=== PATIENT | male | born 1990 | race Caucasian/White ===

== ENCOUNTER 2018-01-09 08:06 | Emergency (ER) | payer OTHER ==
[2018-01-09] MEDS ORDERED: IBUPROFEN 400 MG TABLET PO STA (08:50)
[2018-01-09] MEDS ORDERED: ALBUTEROL NEB 2.5 MG/3 ML INH STA (08:50)
--- NOTE | 2018-01-09 08:52 | ED Physician Documentation ---
History of Present Illness - Stated complaint Stated Complaint: FEVER/BODYACHES/THROAT PX - Chief complaint Chief Complaint: Fever - Additonal information Additional information: hx from pt 28 AD [place] male to ED with fever to 101 + sore throat body aches cp and cough no recent travel he thinks sx are due to inhaling polyuerethane paint that he was sanding yesterday - but he was wearing a respirator sx started about 4 hr after th sanding job Review of Systems Constitutional: reports: Fever, Myalgias Throat: reports: Sore throat Cardiac: reports: Chest pain / pressure Respiratory: reports: Cough GI: denies: Abdominal Pain, Nausea, Vomiting Endocrine: denies: Easy bruising / bleeding Immunocompromised: denies: Immunocompromised PD PAST MEDICAL HISTORY - Past Medical History Past Medical History: No - Past Surgical History Past Surgical History: No - Present Medications Home Medications: Ambulatory Orders Medication Instructions Recorded Confirmed Albuterol Sulfate [Proair Hfa 2 puffs INH Q4H PRN #1 inhaler 01/09/18 Inhaler] Bupropion HCl [Bupropion HCl ER] 350 mg 01/09/18 - Allergies Allergies/Adverse Reactions: Allergies Allergy/AdvReac Type Severity Reaction Status Date / Time No Known Drug Allergies Allergy Verified 01/09/18 08:15 - Social History Does the pt smoke?: No Smoking Status: Never smoker PD ED PE NORMAL - Vitals Vital signs reviewed: Yes - General General: Alert and oriented X 3 - HEENT HEENT: PERRL, Moist mucous membranes, Pharynx benign - Neck Neck: Supple, no meningeal sign - Cardiac Cardiac: RRR - Respiratory Respiratory: No respiratory distress, Clear bilaterally - Abdomen Abdomen: Soft, Non tender - Extremities Extremities: No tenderness to palpate, Normal ROM s pain, No edema, No calf tenderness / cord - Neuro Neuro: Alert and oriented X 3 Results - Vitals Vitals: Vital Signs - 24 hr 01/09/18 01/09/18 08:11 09:29 Temperature 36.6 C Heart Rate 76 81 Respiratory 18 16 Rate Blood Pressure 123/70 O2 Saturation 100 Oxygen O2 Source Room air - Labs Labs: Laboratory Tests 01/09/18 08:40 Group A Strep Rapid Negative - Rads (name of study) CXR Radiology: See rad report ([facility]) PD MEDICAL DECISION MAKING - Sepsis Event Vital Signs: Vital Signs - 24 hr 01/09/18 01/09/18 08:11 09:29 Temperature 36.6 C Heart Rate 76 81 Respiratory 18 16 Rate Blood Pressure 123/70 O2 Saturation 100 Oxygen O2 Source Room air Departure - Departure Disposition: 01 Home, Self Care Clinical Impression: Reactive airway disease Qualifiers: Asthma severity: unspecified severity Asthma persistence: unspecified Asthma complication type: uncomplicated Qualified Code(s): J45.909 - Unspecified asthma , uncomplicated Condition: Good Instructions: ED Reactive Airway Disease Follow-Up: ARMIDA ELIZABETH MD [Primary Care Provider] - Prescriptions: Albuterol Sulfate [Proair Hfa Inhaler] 2 puffs INH Q4H PRN #1 inhaler PRN Reason: Shortness Of Air/Wheezing Comments: The xray was fine and the strep test was negative. This is likely airway inflammation for the chemical you in haled The breathing treatment seems to help so I have prescribed you an inhaler Please follow up with [facility] if not better in 2 days Return if worse No working out until better Forms: Activity restrictions
--- NOTE | 2018-01-09 09:18 | XRAY Report ---
Procedure Date: 01/09/2018 Accession Number: [id number] / [id number] Procedure: XR - Chest 2 View X-Ray CPT Code: 40626 FULL RESULT: EXAM: CHEST RADIOGRAPHY EXAM DATE: 01/09/2018 09:04 AM. CLINICAL HISTORY: Cough fever. COMPARISON: None. TECHNIQUE: 2 views. FINDINGS: Lungs/Pleura: No focal opacities evident. No pleural effusion. No pneumothorax. Normal volumes. Mediastinum: Heart and mediastinal contours are unremarkable. Other: None. IMPRESSION: Normal 2-view chest radiography. [facility]
[2018-01-09 10:20] VITALS: BP 110/66
== END 2018-01-09 10:20 | disposition home or self-care (01) ==
LOC: ED 08:06
DX: J45.909 Unspecified asthma, uncomplicated (principal)
CPT/HCPCS: 71046; 87070; 87430; 94640; 94664; 99283; A9270

== ENCOUNTER 2019-05-01 11:41 | Emergency (ER) | payer OTHER ==
[2019-05-01 12:07] VITALS: BP 115/76
[2019-05-01] MEDS ORDERED: cefTRIAXone 250 MG VIAL IM STA (14:34)
[2019-05-01] MEDS ORDERED: AZITHROMYCIN 250 MG TABLET PO STA (14:34)
[2019-05-01] MEDS ORDERED: LIDOCAINE 1% 2 ML VIAL MC ONE (14:34)
--- NOTE | 2019-05-01 14:38 | ED Physician Documentation ---
History of Present Illness - Stated complaint Stated Complaint: MALE - Chief complaint Chief Complaint: General - History obtained from History obtained from: Patient - History of Present Illness Timing: How many days ago (4) Pain level max: 2 Pain level now: 2 - Additonal information Additional information: Patient presents to the emergency department complaining of urethral discharge, clear for the past 4 days after having intercourse with a new partner. Has a history of gonorrhea and chlamydia in the past. No fevers. No vomiting. Nothing makes it better or worse Review of Systems Constitutional: denies: Fever GI: denies: Nausea, Vomiting Skin: denies: Rash PD PAST MEDICAL HISTORY - Past Medical History Past Medical History: No - Past Surgical History Past Surgical History: No - Present Medications Home Medications: Ambulatory Orders Medication Instructions Recorded Confirmed Albuterol Sulfate [Proair Hfa 2 puffs INH Q4H PRN #1 inhaler 01/09/18 Inhaler] buPROPion HCl [Bupropion HCl ER] 350 mg 01/09/18 - Allergies Allergies/Adverse Reactions: Allergies Allergy/AdvReac Type Severity Reaction Status Date / Time No Known Drug Allergies Allergy Verified 05/01/19 12:07 - Social History Does the pt smoke?: No Smoking Status: Never smoker PD ED PE NORMAL - Vitals Vital signs reviewed: Yes - General General: Alert and oriented X 3, No acute distress, Well developed/nourished - HEENT HEENT: Moist mucous membranes - Neck Neck: Supple, no meningeal sign - Cardiac Cardiac: RRR - Respiratory Respiratory: Clear bilaterally - Derm Derm: Warm and dry - Neuro Neuro: Alert and oriented X 3 - Psych Psych: Normal mood, Normal affect Results - Vitals Vitals: Vital Signs - 24 hr 05/01/19 12:03 Temperature 98.7 C H Heart Rate 57 L Respiratory 14 Rate Blood Pressure 115/76 O2 Saturation 100 Oxygen O2 Source Room air PD MEDICAL DECISION MAKING - ED course Complexity details: considered differential, d/w patient ED course: Patient treated for gonorrhea and chlamydia. Testing was sent for confirmation. Given Rocephin and azithromycin. Patient counseled regarding signs and symptoms for which I believe and urgent re-evaluation would be necessary. Patient with good understanding of and agreement to plan and is comfortable going home at this time This document was made in part using voice recognition software. While efforts are made to proofread this document, sound alike and grammatical errors may occur. Departure - Departure Disposition: 01 Home, Self Care Clinical Impression: STD (sexually transmitted disease) Condition: Good Instructions: ED STD Male Treated Follow-Up: ARMIDA ELIZABETH MD [Primary Care Provider] - As Needed Comments: You should use condoms for any sexual activity. Return if you worsen. You were treated for both gonorrhea and chlamydia today.
[2019-05-01 15:01] LABS: BILIRUBIN,URINE NEGATIVE (NEGATIVE); GLUCOSE, URINE (UA) NEGATIVE (NEGATIVE); KETONES,URINE (UA) NEGATIVE (NEGATIVE); LEUKOCYTE ESTERASE, URINE NEGATIVE (NEGATIVE); NITRITE,URINE NEGATIVE (NEGATIVE); OCCULT BLOOD,URINE NEGATIVE (NEGATIVE); PROTEIN,URINE NEGATIVE (NEGATIVE); UROBILINOGEN,URINE 0.2 (NORMAL) E.U./dL (NORMAL)
[2019-05-01 15:02] LABS: CLARITY,URINE CLEAR (CLEAR)
[2019-05-01 20:59] LABS: TRICHOMONAS VAGINALIS DNA NEGATIVE (NEGATIVE)
== END 2019-05-01 14:59 | disposition home or self-care (01) ==
LOC: ED 11:41
DX: A56.2 Chlamydial infection of genitourinary tract, unspecified (principal); A54.00 Gonococcal infection of lower genitourinary tract, unspecified
CPT/HCPCS: 81003; 87491; 87591; 87661; 96372; 99282; 99283; A9270; 81001; 87086

== ENCOUNTER 2019-05-23 10:05 | Emergency (ER) | payer OTHER ==
[2019-05-23 10:14] VITALS: BP 142/79
--- NOTE | 2019-05-23 10:34 | ED Physician Documentation ---
PD HPI LOWER EXT INJURY - Stated complaint Stated Complaint: R KNEE PX - Chief complaint Chief Complaint: Ext Problem - History obtained from History obtained from: Patient - History of Present Illness PD HPI LOW EXT INJURY LOCATION: Right, Knee Type of injury: Twist (he was kneeling playing with his small son and felt a pop and pain in medial right knee when started to get up to standing position. Hurt a lot. Pain with ROM and walking, and improved after minutes. Then bent knee again and this time felt that it locked in mostly bent position. After few minutes, he was able to then straighten it, and did so with slight pop. He then was able to walk okay. He knelt down again shortly later,a nd had the knee lock bent again, hurting a lot to try to straighten it, and then 5-6 minutes later, he was then able to get it straight. Pain with walking since then.). No: Fall Where injury occurred: Home Timing - onset: Yesterday Timing - details: Abrupt onset, Still present, Waxing and waning (hurting and locking if bends knee to squatting/kneeling position.) Associated symptoms: No: Weakness, Numbness, Swelling Similar symptoms before: Has not had sx before Review of Systems Constitutional: denies: Fever, Chills, Myalgias Skin: denies: Rash, Lesions Musculoskeletal: reports: Extremity pain. denies: Extremity swelling Neurologic: denies: Focal weakness, Numbness PD PAST MEDICAL HISTORY - Past Medical History Past Medical History: No Musculoskeletal: None - Past Surgical History Past Surgical History: No - Present Medications Home Medications: Ambulatory Orders Medication Instructions Recorded Confirmed Ibuprofen [Motrin] 600 mg PO TID PRN #25 tab 05/23/19 - Allergies Allergies/Adverse Reactions: Allergies Allergy/AdvReac Type Severity Reaction Status Date / Time No Known Drug Allergies Allergy Verified 05/23/19 10:11 - Social History Does the pt smoke?: No Smoking Status: Never smoker Does the pt drink ETOH?: No Does the pt have substance abuse?: No PD ED PE NORMAL - Vitals Vital signs reviewed: Yes - General General: Alert and oriented X 3, No acute distress, Well developed/nourished - Derm Derm: Normal color, Warm and dry - Extremities Extremities: Other (right knee with tenderness medially that shifts with ROM of the knee. No effusion noted. Pain with valgus stress and also with rotational movement of lower leg. Extends to full, without locking nor crepitance.) - Neuro Neuro: Alert and oriented X 3, No motor deficit, No sensory deficit Results - Vitals Vitals: Vital Signs - 24 hr 05/23/19 10:11 Temperature 36.7 C Heart Rate 61 Respiratory 17 Rate Blood Pressure 142/79 H O2 Saturation 100 Oxygen O2 Source Room air PD MEDICAL DECISION MAKING - ED course Complexity details: reviewed results (no bony abnormal), considered differential (can be MCL strain, but the locking and popping are most suggestive of MCL small tear. ), d/w patient Departure - Departure Disposition: Home, Self Care Clinical Impression: Strain of right knee Qualifiers: Encounter type: initial encounter Qualified Code(s): S86.911A - Strain of unspecified muscle(s) and tendon(s) at lower leg level, right leg, initial encounter Acute meniscal injury of knee Qualifiers: Encounter type: initial encounter Laterality: right Qualified Code(s): S83.8X1A - Sprain of other specified parts of right knee, initial encounter Condition: Stable Record reviewed to determine appropriate education?: Yes Instructions: ED Meniscal Injury Knee Poss Follow-Up: ARMIDA ELIZABETH MD [Primary Care Provider] - Prescriptions: Ibuprofen [Motrin] 600 mg PO TID PRN #25 tab PRN Reason: Pain Comments: Your x-ray is normal so no obvious bony abnormality. This sounds like a small tear at the corner of the meniscus (cartilage in the knee). Use the knee brace to limit range of motion to straight to 90 degrees. Do not do any deep knee bending or squatting for least a week. Use some anti-inflammatory such as ib uprofen 3 times a day for 7 to 10 days. Follow-up with your primary care in about 5 to 7 days, call for an appointment. Most commonly the small tear in the meniscus will heal down and settle down and not be your ongoing problem. If it is still a recurring issue, you would follow-up with your primary care and they may need to refer you to orthopedics or get other imaging such as MRI. Forms: Activity restrictions Discharge Date/Time: 05/23/19 12:22
[2019-05-23] MEDS ORDERED: IBUPROFEN 600 MG TABLET PO STA (11:18)
--- NOTE | 2019-05-23 11:27 | XRAY Report ---
Reason: felt knee pop lock last night Procedure Date: 05/23/2019 Accession Number: [id number] / [id number] Procedure: XR - Knee 4 View RT CPT Code: Final Report FULL RESULT: EXAM: RIGHT KNEE RADIOGRAPHY FOR YEARS EXAM DATE: 05/23/2019. CLINICAL HISTORY: [place] the knee pop and lock last night. Flexion injury. COMPARISON: None. TECHNIQUE: AP, both oblique and crosstable lateral views. FINDINGS: Bones: Normal. No fractures or bone lesions. Joints: Normal. No effusion. No subluxations. Soft Tissues: Normal. No soft tissue swelling. IMPRESSION: Normal right knee radiography. [facility]
== END 2019-05-23 12:22 | disposition home or self-care (01) ==
LOC: ED 10:05
DX: S86.911A Strain of unspecified muscle(s) and tendon(s) at lower leg level, right leg, initial encounter (principal); S83.8X1A Sprain of other specified parts of right knee, initial encounter; X58.XXXA Exposure to other specified factors, initial encounter; Y93.89 Activity, other specified; Y92.009 Unspecified place in unspecified non-institutional (private) residence as the place of occurrence of the external cause
CPT/HCPCS: 73564; 99283; A9270

== ENCOUNTER 2019-06-02 01:13 | Outpatient (CLI) | payer OTHER | END 2019-06-02 01:14 | disposition critical access hospital (66) | LOC: EMS 01:13 | PROVIDERS: ATTEND Surgery | DX: R29.898 Other symptoms and signs involving the musculoskeletal system (principal); M25.561 Pain in right knee | CPT/HCPCS: A0425; A0429 ==

== ENCOUNTER 2019-06-02 01:29 | Emergency (ER) | payer OTHER ==
--- NOTE | 2019-06-02 01:51 | ED Physician Documentation ---
PD HPI LOWER EXT INJURY - Stated complaint Stated Complaint: RT KNEE INJURY - Chief complaint Chief Complaint: Ext Problem - History obtained from History obtained from: Patient - History of Present Illness PD HPI LOW EXT INJURY LOCATION: Right, Knee Type of injury: No: Fall, Twist Where injury occurred: Home Timing - onset: How many hours ago (2), Today Timing - duration: Other (He had initial injury of the right knee about 2 and half weeks ago with pain in hurting with extension with clicking and popping while just in a kneeling position. No abrupt injury per se. It was felt to be likely meniscal and he was given a hinged knee brace and told not to do any deep squats or bends. He had been doing pretty well with it with occasional popping and clicking and pain of the knee. He went to get into bed this evening and bent his knee up as he got into bed and then the abruptly felt stuck in the flexed position and had significant pain with attempting to straighten it.) Timing - details: Abrupt onset, Still present Worsened by: Moving Associated symptoms: No: Weakness, Numbness, Swelling Similar symptoms before: Diagnosis (likely meniscal injury) Recently seen: Clinic (Last week and had referral placed for an MRI to better evaluate.), Emergency Dept (2 and half weeks ago) Review of Systems Constitutional: denies: Fever, Chills Skin: denies: Rash, Lesions, Abrasion (s) Musculoskeletal: reports: Joint pain Neurologic: denies: Focal weakness, Numbness PD PAST MEDICAL HISTORY - Past Medical History Past Medical History: No Musculoskeletal: None - Past Surgical History Past Surgical History: No - Present Medications Home Medications: Ambulatory Orders Medication Instructions Recorded Confirmed Ibuprofen [Motrin] 600 mg PO TID PRN #25 tab 05/23/19 - Allergies Allergies/Adverse Reactions: Allergies Allergy/AdvReac Type Severity Reaction Status Date / Time No Known Drug Allergies Allergy Verified 05/23/19 10:11 - Social History Does the pt smoke?: No Smoking Status: Never smoker Does the pt drink ETOH?: No Does the pt have substance abuse?: No PD ED PE NORMAL - Vitals Vital signs reviewed: Yes - General General: Alert and oriented X 3, Well developed/nourished, Other (He appears in pain and is holding his knee in a fully flexed position and is hands are wrapped around his leg to hold it splinted.) - Derm Derm: Normal color, Warm and dry - Extremities Extremities: Other (There is guarding for attempted extension of the right knee and it causes significant pain. I tried it and valgus stress with extension in that way but was still hurting quite a bit and guarded. No effusion.) - Neuro Neuro: Alert and oriented X 3, No motor deficit, No sensory deficit, Normal speech Results - Vitals Vitals: Vital Signs - 24 hr 06/02/19 06/02/19 01:30 03:50 Temperature 36.4 C L Heart Rate 92 65 Respiratory 18 18 Rate Blood Pressure 140/83 H 119/73 O2 Saturation 100 96 Oxygen O2 Source Room air PD MEDICAL DECISION MAKING - ED course Complexity details: considered differential (Likely a flap of meniscus is up and locking the joint. He is given some IV pain medication and I also injected the joint with 2% lidocaine using 4 mL from the medial side. This allowed decrease in his pain of his knee considerably. I extended the knee while doing valgus stress and was able to come out fully extended and felt better. There is no effusion noted.), d/w patient Departure - Departure Disposition: 01 Home, Self Care Clinical Impression: Acute meniscal injury of knee Qualifiers: Encounter type: subsequent encounter Laterality: right Qualified Code(s): S83.8X1D - Sprain of other specified parts of right knee, subsequent encounter Condition: Stable Record reviewed to determine appropriate education?: Yes Instructions: ED Meniscal Injury Knee Poss Follow-Up: LUCIANA Kapoor [Provider Group] Comments: Use the crutches for partial weightbearing as needed for the acute discomfort. You likely have some inflammation of the cartilage from the locking episode this evening. Use your knee brace still and avoid bending your knee beyond 90 degrees to minimize the movement and irritation of the meniscus. Follow-up with your primary care in the next few days, call for an appointment. I presume they will have you follow-up with orthopedics. Use some anti-inflammatories such as ibuprofen 2-3 times a day. Add pain medicine if needed.
[2019-06-02] MEDS ORDERED: KETOROLAC 30 MG/ML VIAL IVP STA (02:09)
[2019-06-02] MEDS ORDERED: HYDROmorphone 2 MG/ML VIAL IVP STA (02:09)
[2019-06-02] MEDS ORDERED: LIDOCAINE 2% 10 ML MDV SUBQ STA (02:39)
[2019-06-02] MEDS ORDERED: HYDROcod/ACET 5/325 Prepack 4 PO STA (03:29)
[2019-06-02 03:52] VITALS: BP 119/73
== END 2019-06-02 04:27 | disposition home or self-care (01) ==
LOC: EDUNIT# → ED 01:29
DX: S83.8X1A Sprain of other specified parts of right knee, initial encounter (principal); X58.XXXA Exposure to other specified factors, initial encounter; Y93.89 Activity, other specified; Y92.003 Bedroom of unspecified non-institutional (private) residence as the place of occurrence of the external cause
CPT/HCPCS: 96374; 96375; 99283; J1170

== ENCOUNTER 2019-06-08 18:25 | Outpatient (CLI) | payer OTHER | END 2019-06-08 18:26 | disposition home or self-care (01) | LOC: DI 18:25 | PROVIDERS: ATTEND Student in an Organized Health Care Education/Training Program | DX: Z53.9 Procedure and treatment not carried out, unspecified reason (principal) ==

== ENCOUNTER 2019-06-10 08:48 | Outpatient (CLI) | payer OTHER ==
--- NOTE | 2019-06-10 14:58 | MRI Report ---
Reason: RT KNEE PAIN Procedure Date: 06/10/2019 Accession Number: [id number] / [id number] Procedure: MRI - Knee RT W/O CPT Code: Final Report FULL RESULT: EXAM: RIGHT KNEE MRI WITHOUT CONTRAST EXAM DATE: 06/10/2019 09:12 AM. CLINICAL HISTORY: Right knee pain. Generalized pain, medial greater than lateral. COMPARISON: Radiographs 05/23/2019. TECHNIQUE: Multiplanar, multisequence T1-weighted and fluid-sensitive sequences of the knee without contrast. Other: None. FINDINGS: Bones: Bone contusion versus subtle impaction fracture far anterior margin medial femoral condyle at the junction with the trochlea. Mild reactive edema medial margin medial compartment. No subluxation. Articular Cartilage: Shallow partial thickness loss central aspect medial and lateral compartments. Deep partial thickness delaminating tear at the mid to inferior aspect medial patellar facet. Medial Meniscus: Horizontal tear contacts the inferior articular surface posterior horn. Lateral Meniscus: The lateral meniscus is intact. Cruciate Ligaments: Small lobulated ganglion along the anterior margins intact anterior and posterior cruciate ligaments. Collateral Ligaments: Mild thickening and edema proximal aspect medial collateral ligament with subtle distortion of the anterior third of the fibers. Lateral collateral ligament intact. Tendons: The quadriceps, patellar, semimembranosus, and popliteus tendons are unremarkable. Musculature: No edema or fatty atrophy. Other: Small joint effusion. Small popliteal cyst. No loose bodies. The medial and lateral retinacula are intact. Subcutaneous soft tissues and fat pads unremarkable.. IMPRESSION: 1. Bone contusion versus subtle impaction fracture medial femoral condyle. 2. Horizontal tear posterior horn medial meniscus. 3. Grade 2 sprain with partial-thickness tear medial collateral ligament. 4. Deep partial thickness delaminating cartilage tear medial patellar facet. 5. Small joint effusion. 6. Small popliteal cyst. [facility]
== END 2019-06-10 08:49 | disposition home or self-care (01) ==
LOC: DI 08:48
PROVIDERS: ATTEND Student in an Organized Health Care Education/Training Program
DX: M89.8X6 Other specified disorders of bone, lower leg (principal); S83.241A Other tear of medial meniscus, current injury, right knee, initial encounter; S83.411A Sprain of medial collateral ligament of right knee, initial encounter; S83.8X1A Sprain of other specified parts of right knee, initial encounter; M25.461 Effusion, right knee; M71.21 Synovial cyst of popliteal space [Baker], right knee

== ENCOUNTER 2019-07-12 07:41 | Day surgery (SDC) | payer OTHER ==
[2019-07-12] MEDS ORDERED: CEFAZOLIN SODIUM IN 0.9 % NACL 2 GM/100 ML BAG IV ONE (07:46)
[2019-07-12] MEDS ORDERED: EPINEPHrine 1 MG/ML AMP ONE (07:48)
[2019-07-12] MEDS ORDERED: BUPIVACAINE 0.25% PF 30 ML VIAL ONE (07:49)
[2019-07-12] MEDS ORDERED: LACTATED RINGERS 1,000 ML IV ONE (07:56)
--- NOTE | 2019-07-12 08:56 | ANESTHESIA ---
Pre-Anesthesia VS, & Labs - Diagnosis right knee meniscal tear - Procedure right knee arthroscopy, meniscal repair Vital Signs: Temp Pulse Resp BP Pulse Ox 36.9 C 76 16 113/63 100 07/12/19 07:56 07/12/19 07:56 07/12/19 07:56 07/12/19 07:56 07/12/19 07:56 Height 5 ft 11.65 in Weight (kg) 82.1 kg Body Mass Index 25.8 - NPO >8 hours Home Medications and Allergies Home Medications: Ambulatory Orders Sertraline HCl [Zoloft] 100 mg PO BID 07/10/19 Trazodone HCl 50 mg PO DAILY 07/10/19 Sertraline HCl [Zoloft] 100 mg PO BID 07/10/19 Trazodone HCl 50 mg PO DAILY 07/10/19 Allergies/Adverse Reactions: Allergies Allergy/AdvReac Type Severity Reaction Status Date / Time No Known Drug Allergies Allergy Verified 07/12/19 08:04 Anes History & Medical History - Anesthetic History Anesthesia Complications: reports: No previous complications - Medical History Cardiovascular: reports: None Pulmonary: reports: None Gastrointestinal: reports: None Urinary: reports: None Musculoskeletal: reports: Other Endocrine/Autoimmune: reports: None Skin: reports: None Smoking Status: Never smoker Exam General: Alert Dental: WNL Mouth Opening: Greater than 4 Fingerbreadths Neck Mobility: Normal Mallampati classification: II Thyromental Distance: greater than 6 cm Respiratory: Lungs clear Cardiovascular: Regular rate, Normal S1, Normal S2 Plan Anesthesia Type: General Consent for Procedure(s) Verified and Reviewed: Yes Code Status: Attempt Resuscitation ASA classification: 1-Healthy patient Is this case an emergency?: No
[2019-07-12] MEDS ORDERED: CELECOXIB 100 MG CAPSULE PO ONE (09:12)
[2019-07-12] MEDS ORDERED: GABAPENTIN 400 MG CAPSULE ONE (09:12)
[2019-07-12] MEDS ORDERED: ACETAMINOPHEN 1,000 MG/100 ML 100 ML IV ONE (09:13)
[2019-07-12] MEDS ORDERED: SCOPOLAMINE PATCH TOP ONE (09:17)
[2019-07-12] MEDS ORDERED: BUPIVACAINE 0.25% PF 30 ML VIAL SUBQ ONE ×2 (10:05)
[2019-07-12] MEDS ORDERED: ONDANSETRON 4 MG/2 ML VIAL IVP PRN (11:02)
[2019-07-12] MEDS ORDERED: oxyCODONE 5 MG TABLET PO PRN (11:02)
[2019-07-12] MEDS: HYDROmorphone 1 MG/ML CARPUJECT ONE ×2 (11:08→11:15)
--- NOTE | 2019-07-12 11:10 | OPERATIVE REPORT ---
Operative Report - Other Other Information/Narrative: Date of Surgery: 12 July 2019 Pre-Op Diagnosis: Right knee medial meniscus tear Procedure: Right knee medial meniscus repair Postop Diagnosis: Right knee medial meniscus tear Primary Surgeon: Jordan Yao Secondary Surgeon: None Complications: None Tourniquet Time: 53 minutes EBL: 5 cc Implants: Arthrex fiber stitch x3 Indication For Surgery: 29-year-old male sustained a medial meniscus tear 6 weeks ago while playing with his children. He had persistent mechanical symptoms and intermittent pain. MRI showed a vertical meniscus tear of the posterior horn and body. He was indicated for surgery to repair the meniscus, relieve mechanical symptoms, and prevent early arthritis. The risks, benefits, and alternatives were discussed. Risks include pain, bleeding, infection, damage to nearby structures and cartilage, lack of symptom relief, need for further surgery, DVT, PE, stroke, and . Written consent was obtained. Examination Under Anesthesia: ROM equal to the contralateral side. Stable dial at 30 & 90 degrees. Stable to varus and valgus stressing at 0 & 30 degrees. Normal Larry. Normal Pivot shift. Normal mechanical sensation Arthroscopic Findings: Loose bodies -none Synovium -exuberant fat pad and ligamentum mucosum that was debrided Patella cartilage -there was a focal partial-thickness lesion on the medial border the patella near the inferior pole, it was left in place. There is otherwise grade 1 changes of the patella Trochlear cartilage -grade 1 changes Medial femoral condyle cartilage -normal Medial tibial plateau cartilage -normal Medial meniscus -vertical tear of the posterior horn that extended into the body. It measured 13 mm off of the free edge. And was in the red-white zone. It was abraded with the meniscal rasp extensively and repaired with 3 all inside anchors by [employer]. It was very stable afterwards Anterior cruciate ligament -normal Posterior cruciate ligament -normal Lateral femoral condyle cartilage -normal Lateral tibial plateau cartilage -normal Lateral meniscus -normal Procedure in Detail: The patient was met in the pre-operative hold area on the day of the procedure. The operative extremity was signed and questions were answered. The patient was brought to the operating room and a general anesthetic was administered. Supine position was used and bony prominences were padded. An examination under anesthesia was performed. Standard prepping and draping was performed. A time out confirmed patient identification, laterality, procedure, allergies, antibiotics, and images. An Esmarch was used to exsanguinate the limb and the tourniquet was elevated to 250 mmHg. A standard diagnostic arthroscopy of the knee was performed through anterolateral and anteromedial portal sites. The anteromedial portal was created under direct visualization after localizing with a spinal needle. The findings can be found above. I then proceeded to use the meniscal rasp to abrade the tear until it began to bleed. I abraded it from the top as well as the bottom and ensured to remove all unstable scar tissue. I then used a sled and brought in the implant. I placed one near the root on the superior margin and tightened it per their technique, this reduced the meniscus very nicely and compressed at. The suture was then cut. I then repeated this again with the implant coming from the medial portal site further over in the posterior horn. I then placed a third implant from the lateral portal site in the body at the end of the tear. With the repair complete it was probed and found to be very stable. Final images were taken and all arthroscopic fluid and instruments were removed from the knee. The incisions were closed with buried monocryl sutures. Steri strips were applied. 20 cc of 0.25% Marcaine without epinephrine was injected near the portal sites. A sterile dressing and compression stocking was placed. A brace was placed in full extension. The patient was awakened and transferred to recovery in stable condition.
[2019-07-12] MEDS ORDERED: HYDROmorphone 0.5 MG/0.5 ML SYRINGE ONE (11:27)
[2019-07-12] MEDS ORDERED: oxyCODONE 5 MG TABLET ONE (11:51)
[2019-07-12 12:07] VITALS: BP 119/74
== END 2019-07-12 07:42 | disposition home or self-care (01) ==
LOC: SDS 07:41
PROVIDERS: ATTEND Orthopaedic Surgery
PROC: 0SQC4ZZ Repair Right Knee Joint, Percutaneous Endoscopic Approach (ICD-10-PCS; principal; 2019-07-12 09:00)
DX: S83.241A Other tear of medial meniscus, current injury, right knee, initial encounter (principal); F17.290 Nicotine dependence, other tobacco product, uncomplicated

== ENCOUNTER 2021-07-22 09:08 | Outpatient (CLI) | payer OTHER ==
--- NOTE | 2021-07-22 09:55 | SLEEP CARE CONSULTATION ---
Information from patient questionnaire entered by Amparo Crawford MA. I have reviewed and concur with the information entered by Amparo Crawford MA. This document represents the service I personally performed and the decisions made by , Cornelia Kim ARNP. History of Present Illness Service Date and Time: 07/22/2021 0908 Reason for Visit: New patient (ONSET 06/2018 NO PRIORS,) Chief Complaint: reports: Insomnia, Unrefreshed sleep, Snoring, Excessive daytime sleepiness Date of Onset: 2-3 YEARS Usual bedtime: 10 PM Time it takes to fall asleep: 1 PLUS HOUR Snores at night: Yes Observed to quit breathing while asleep: No Sleeps alone due to snoring: No Number of times waking at night: 1-2 TIMES Reasons for waking at night: reports: Other Toss, Turn, or Twitch while sleeping: Yes Recalls having dreams: Yes Usually gets out of bed at: 9120-1453 Feels refreshed in the morning: No Morning headache: No Sleepy or fatigued during the day: Yes Ever fallen asleep while driving: No Takes day naps: No Dreams during day naps: No Prior sleep studies: No Additional HPI information: I had the pleasure of seeing SURI SIMMS today regarding the possibility of him having a sleep disorder. His current complaints are insomnia, excessive daytime sleepiness, fatigue, snoring and unrefreshed sleep. The patient tells me that he normally goes to bed around 10 pm, and it takes him approximately 1 hour to fall asleep, sometimes longer. He states if he wakes up he usually will go back to sleep but about 2-3 time a month he will not be able to return to sleep. He has been told that he snores loudly and irregularly at night. He has not been observed to stop breathing in his sleep. His bed partner can still sleep in the same bed. He can recall waking up on the average of 1-2 times during the night. Most of the time he wakes up because of unknown reasons. He will wake up sweating or with a very dry mouth. He has not awakened for his own snoring, choking, and having to gasp for air. There is a lot of tossing and turning in his sleep. Generally he can recall having dreams sometimes but this is rare for him. He usually wakes up at 6-7 am on weekdays and 9 am on weekends and does not feel refreshed. He usually does not have a morning headache. During the day he complains of feeling sleepy and fatigued. He has never fallen asleep while driving nor has any accident due to sleepiness. He sometimes naps (about 1 times a month), these are usually unintentional for about 3-4 hours on average during the day. If he naps, upon falling asleep during the day he denies having vivid dreams. There is somniloquy (sleep talking) but no somnambulism (sleep walking). He has never experienced sleep paralysis, but has felt some muscle weakness when startled or emotional and has had symptoms of restless leg syndrome. He reports having impaired concentration during the day. - Parasomnia Symptoms Ever been unable to move upon waking from sleep: No Walks in sleep: No Talks in sleep: Yes Ever acted out dreams in sleep: Yes Ever felt weak in the knees when startled or emotional: Yes Bothered by creepy, crawly, restless sensations in legs: Yes Problems with memory or concentration: Yes Subjective Initial [place] Sleepiness Scale score: 10 (2021) Past Medical History Past Medical History: reports: Anxiety, Depression, Attention deficit Social History The patient's occupation is a [employer]. Patient is and lives in [place]. Have you smoked in the past 12 months: No Cigarettes per day (20/pack): 20 Years of smokin Quit date: 2012 Smoking Pack Years: 5.0 Alcohol use: No Caffeine use: Yes Caffeine amount and frequency: 2 X DAILY Family History Family history of sleep disordered breathing: Yes Family Hx Sleep Apnea: Mother: Snoring Allergies and Home Medications Drug allergies reviewed: Yes (NKDA) Home medication list reviewed: Yes Allergy and home medication list: Allergies No Known Drug Allergies Allergy (Verified 07/12/19 08:04) Medications: Adderall XR 30 mg Hydroxyzine 25 mg, prn Review of Systems Weight gain over past 5 years: 20 Weight loss over past 5 years: 0 Psychiatric: reports: Attention Deficit Hyperactivity, anxiety, depression Ear/Nose/Throat: reports: dry mouth/throat, injury to nose (nose broken (cartilage), has deviated septum), wisdom teeth removed. denies: tonsillectomy Endocrine: reports: sluggishness Musculoskeletal: reports: joint pain, back pain Immunologic: denies: allergies to food or environment Physical Exam Vital signs obtained and entered by: NATIVIDAD GONZALEZ Blood Pressure: 131/90 (RIGHT, PULSE 59,RESP 18,) Cuff size: wrist Heart Rate: 64 O2 Saturation: 99 (WITH CLOTH MASK) Height: 5 ft 11.65 in Weight: 195 lb (WITH CLOTHES) Body Mass Index: 26.6 BMI Classification: Overweight Neck circumference: 15.45 (inches) Mouth and throat: narrow oropharynx Soft palate: long Hard palate: normal Uvula: normal Uvula visualization: 50% Mallampati Class II Tongue: enlarged in size with teeth cooper on lateral edges Tonsils: small Neck: normal w/o lymphadenopathy or thyromegaly Heart: regular rate and rhythm Lungs: clear bilaterally Impression and Plan 1. Suspected Obstructive Sleep Apnea-Hypopnea Syndrome, as suggested by a history of irregular snoring, frequent awakening during the night, unrefreshed sleep, cognitive impairment, and excessive daytime sleepiness. Narrow oropharynx and obesity are common predisposing factors for obstructive sleep apnea-hypopnea syndrome. I recommend proceeding to polysomnography to confirm the diagnosis and to assess severity. If the patient has significant sleep disordered breathing, a manual CPAP titration study will also be performed to find the optimal treatment pressure. I informed the patient of what the sleep studies involve and after eladio e discussion, obtained agreement to proceed. The pathophysiology of obstructive sleep apnea-hypopnea syndrome was discussed with the patient and health risks of cardiovascular and cerebrovascular disease if not treated. Risks of drowsy driving discussed in detail and patient advised to avoid long distance driving and to gut puller at the first sign of drowsiness. Patient agreed to plan. * Schedule polysomnography +- manual CPAP titration study and return in 1-2 weeks after the study to discuss result and initiate therapy. * Avoid long distance driving or driving when feeling sleepy. * Avoid alcohol, sedative and muscle relaxant around bedtime. * Attempt to lose weight. * Review instructions provided by trained office staff on how to prepare for the sleep study. * Return for follow-up after sleep study completed. Counseling Topics: Weight loss health impact Visit Type: In Office Time Spent with Patient (minutes): 31 Provider Statement: I spent 100% of the Face to Face Visit with the patient with greater than 50% spent counseling the patient and coordination of care.
[2021-07-22 09:56] VITALS: BP 131/90
== END 2021-07-22 09:09 | disposition home or self-care (01) ==
LOC: SC 09:08
PROVIDERS: ATTEND Nurse Practitioner Family
DX: R06.83 Snoring (principal); G47.8 Other sleep disorders; G47.10 Hypersomnia, unspecified; R41.89 Other symptoms and signs involving cognitive functions and awareness
CPT/HCPCS: 99203; 99212

== ENCOUNTER 2021-08-02 08:49 | Outpatient (CLI) | payer OTHER ==
--- NOTE | 2021-08-02 13:56 | MRI Report ---
PROCEDURE: Hand LT W/O INDICATIONS: SPRAIN OF METACARPOPPHALANGEAL JOINT TECHNIQUE: Noncontrast oblique coronal T1 spin echo and T2 fast spin echo with fat saturation, axial and sagitta l T2 fast spin echo with fat saturation, through the thumb. COMPARISON: None. FINDINGS: Image quality: Excellent. Bones: The bones are normally aligned, without marrow contusions or fractures. Nonspecific subcortic al cyst formation involving radial and volar aspect of first metacarpal head is seen. No suspicious i ntraosseous lesion. First carpometacarpal joint: On sagittal images, the dorsal radial ligament and posterior oblique li gament appear intact. The intermetacarpal ligament between the 1st and 2nd metacarpal bases also vicky ears intact. On the volar aspect, the deep and superficial layers of the anterior oblique ligament a ppear intact. First metacarpophalangeal joint: Small amount of fluid within first MCP joint is seen. No gross intr a-articular loose bodies. The proper and accessory components of the radial collateral ligament appea rs thickened suggestive of sprain/low-grade intrasubstance partial thickness tear. Overlying fibers o f the abductor pollicis brevis tendon are grossly intact.. The proper and accessory components of th e ulnar collateral ligaments also appears mildly thickened. The overlying fibers of the adductor poll icis muscle is intact. The aponeurosis of the adductor pollicis muscle also appears normal. The vol ar plate appears intact on sagittal images, situated between the radial and ulnar sesamoids. Thenar muscles: The superficial abductor pollicis longus muscle appears normal, with tendon insertin g on the radial base of the first proximal phalanx. The opponens pollicis muscle also appears normal , inserting on the first metacarpal shaft. The flexor pollicis brevis muscle appears normal, with te ndon inserting on the radial sesamoid and first proximal phalanx. The oblique and transverse heads o f the adductor pollicis muscle appear normal, inserting on the ulnar sesamoid and proximal phalanx as part of the adductor aponeurosis. Flexor pollicis longus tendon: Tendon fibers appear intact, coursing between the thenar eminence mus cles and the adductor pollicis muscle, and inserting on the volar base of the distal phalanx. The fi rst annular cecille at the level of the first MCP joint appears intact, intimate with the sesamoids. The second annular cecille at the level of interphalangeal joint also appears intact. The oblique laurita ular cecille between the 1st and 2nd annular pulleys appears intact, with ulnar proximal attachment in timate with the adductor aponeurosis. The variable annular cecille also appears intact between the fi rst annular and oblique annular pulleys. Extensor tendons: The extensor pollicis brevis tendon appears intact, coursing radial to the extenso r pollicis longus tendon and inserting on the dorsal base of the proximal phalanx, blending with the dorsal plate of the first MCP joint. The extensor pollicis longus tendon appears intact as it insert s on the dorsal base of the distal phalanx. The sagittal band at the level of the first MCP joint ap pears intact. The abductor pollicis longus tendon slips appear intact at the radial aspect of the pr oximal phalanx, proximal to the abductor pollicis brevis tendon insertion. Miscellaneous: No ganglion cysts. IMPRESSION: 1. Finding is suggestive of sprain/low-grade partial thickness tear involving the radial collateral l igaments of first MCP joint. There is also low-grade sprain involving ulnar collateral ligaments of f irst MCP joint. No full-thickness ligament rupture. 2. Extensor and flexor tendon of left thumb are grossly intact. 3. No marrow edema. No fracture or dislocation. No specific subcortical cyst formation and radial and volar aspect of first metacarpal head. Reviewed by: Dylan Sanchez MD on 08/02/2021 1:55 PM PST Approved by: Dylan Sanchez MD on 08/02/2021 1:55 PM PST Station ID: [id number]
== END 2021-08-02 08:50 | disposition home or self-care (01) ==
LOC: DI 08:49
PROVIDERS: ATTEND Family Medicine
DX: S63.642D Sprain of metacarpophalangeal joint of left thumb, subsequent encounter (principal)

== ENCOUNTER 2021-08-03 09:16 | Outpatient (CLI) | payer OTHER | END 2021-08-03 09:17 | disposition home or self-care (01) | LOC: SC 09:16 | PROVIDERS: ATTEND Nurse Practitioner Family | DX: R09.02 Hypoxemia (principal); G47.10 Hypersomnia, unspecified; R53.83 Other fatigue; G47.8 Other sleep disorders; R06.83 Snoring; F32.A Depression, unspecified | CPT/HCPCS: 95806 ==

== ENCOUNTER 2021-08-19 09:32 | Outpatient (CLI) | payer OTHER ==
--- NOTE | 2021-08-19 09:59 | SLEEP CARE CONSULTATION ---
Information from patient questionnaire entered by Amparo Crawford MA. I have reviewed and concur with the information entered by Amparo Crawford MA. This document represents the service I personally performed and the decisions made by Julio mccabe Caren J, ARNP. History of Present Illness Service Date and Time: 08/19/2021 0932 Initial [place] Sleepiness Scale score: 10 (2021) Current [place] Sleepiness Scale score: 10 (08/2021) Additional HPI information: SURI SIMMS returns for follow up and results of the recently performed home sleep study. The patient was informed of the following findings: No significant sleep disordered breathing with an average AHI of 3.2 and sarah oxygen saturation of 77%. I explained the pathophysiology behind obstructive sleep apnea. Patient does not have sleep apnea and was advised how weight gain could increase the risk of developing sleep apnea in the future. Patient has light snoring. His testing time was sub-optimal in length. Patient counseled not drink alcohol less than 4 hours before bedtime as it can increase snoring and apnea. Patient was cautioned about risks of drowsy driving until sleepiness symptoms resolve. Sleep Study - Results Type of Sleep Study: Home sleep study (F/U HOME STUDY) Prior sleep studies: No Polysomnography/Home Sleep Study results: Physician Impression: The quality of the study is good. The length of the study is [id number] (< 240 minutes). Please also see the tabulated and graphic data. 1. No significant sleep disordered breathing, with an AHI of 3.2/hr and sarah SaO2 of 77%. During the study, the patient had 3 apneas (3 obstructive, 0 central, 0 mixed) and 6 hypopneas. The longest episode lasted 53.0 seconds. The few respiratory events occurred independently of body position (supine AHI was 4.3 and non-supine, 3.14). 2. Hypoxemia (ICD-10 R09.02), minimal, with the lowest oxygen saturation of 77 % and 1.6 minutes with SaO2 under 90%. Baseline oxygen saturation was normal (Average oxygen saturation was 96%). Allergies and Home Medications Home medication list reviewed: Yes (no changes) Allergy and home medication list: Allergies No Known Drug Allergies Allergy (Verified 07/12/19 08:04) Review of Systems Review of systems same as previous: Yes (no changes) Physical Exam Vital signs obtained and entered by: NATIVIDAD GONZALEZ Blood Pressure: 121/74 (PULSE 61, RIGHT, RESP 18) Cuff size: regular Heart Rate: 62 O2 Saturation: 100 (PAPER) Height: 5 ft 11.65 in Weight: 200 lb Body Mass Index: 27.3 BMI Classification: Overweight Impression and Plan 1. Suspected Obstructive Sleep Apnea-Hypopnea Syndrome, as suggested by a history of loud and irregular snoring, morning headache, frequent awakening during the night, unrefreshed sleep, cognitive impairment, and excessive daytime sleepiness. Patient completed a home study with less than optimal amount of recording time. He states he thought he slept 8 hours but it only recorded a bout 3 hours of sleep. I think we need to repeat the study just to get a more accurate measurement. I recommend proceeding to polysomnography to confirm the diagnosis and to assess severity. If the patient has significant sleep disordered breathing, a manual CPAP titration study will also be performed to find the optimal treatment pressure. I informed the patient of what the sleep studies involve and after some discussion, obtained agreement to proceed. The pathophysiology of obstructive sleep apnea-hypopnea syndrome was discussed with the patient and health risks of cardiovascular and cerebrovascular disease if not treated. Risks of drowsy driving discussed in detail and patient advised to avoid long distance driving and to shoe puller at the first sign of drowsiness. Patient agreed to plan. * Schedule polysomnography +- manual CPAP titration study and return in 1-2 weeks after the study to discuss results. * Avoid long distance driving or driving when feeling sleepy. * Avoid alcohol, sedative and muscle relaxant around bedtime. * Attempt to lose weight. * Review instructions provided by trained office staff on how to prepare for the sleep study. * Return for follow-up after sleep study completed. Counseling Topics: Weight loss health impact Visit Type: In Office Time Spent with Patient (minutes): 20 Provider Statement: I spent 100% of the Face to Face Visit with the patient with greater than 50% spent counseling the patient and coordination of care.
[2021-08-19 10:00] VITALS: BP 121/74
== END 2021-08-19 09:33 | disposition home or self-care (01) ==
LOC: SC 09:32
PROVIDERS: ATTEND Nurse Practitioner Family
DX: R06.83 Snoring (principal); G47.8 Other sleep disorders; R51.9 Headache, unspecified; G47.10 Hypersomnia, unspecified; F32.A Depression, unspecified; R09.02 Hypoxemia; E66.3 Overweight; Z68.27 Body mass index [BMI] 27.0-27.9, adult
CPT/HCPCS: 99212; 99213

== ENCOUNTER 2021-09-06 19:34 | Outpatient (CLI) | payer OTHER | END 2021-09-06 19:35 | disposition home or self-care (01) | LOC: SC 19:34 | PROVIDERS: ATTEND Nurse Practitioner Family | DX: G47.61 Periodic limb movement disorder (principal) | CPT/HCPCS: 95810 ==

== ENCOUNTER 2021-10-15 13:44 | Outpatient (CLI) | payer MEDICAID ==
--- NOTE | 2021-10-15 14:13 | SLEEP CARE CONSULTATION ---
Information from patient questionnaire entered by Amparo Crawford MA. I have reviewed and concur with the information entered by Amparo Crawford MA. This document represents the service I personally performed and the decisions made by , Cornelia Kim ARNP. History of Present Illness Service Date and Time: 10/15/2021 1344 Accompanied by: Spouse Initial [place] Sleepiness Scale score: 10 (2021) Current [place] Sleepiness Scale score: 8 (10/2021) Additional HPI information: SURI SIMMS returns for follow up and results of the recently performed polysomnography. The patient was informed of the following findings: No significant sleep disordered breathing with an average AHI of 0.0 and sarah oxygen saturation of 92%. Patient did have moderate periodic leg movements of sleep and a light snore. I explained the pathophysiology behind obstructive sleep apnea. Patient does not have sleep apnea and was advised how weight gain could increase the risk of developing sleep apnea in the future. [I strongly encouraged the patient to lose weight]. [Patient has [light] snoring. Snoring can be reduced by weight loss. Weight loss is best achieved with diet consult. Patient instructed to contact PCP for r eferral. Snoring can also be treated with an oral appliance from a dentist. Advised to check insurance coverage. In addition, an ENT evaluation can be do to see if other treatment is indicated.] [Patient counseled not drink alcohol less than 4 hours before bedtime as it can increase snoring and apnea. ][Patient does not drink alcohol. ] Patient was cautioned about risks of drowsy driving until sleepiness symptoms resolve. [Patient denies drowsy driving. ][AAS patient education on snoring and sleep apnea given and reviewed.] Sleep Study - Results Type of Sleep Study: Polysomnography (F/U POLY, 09/06/2021 [facility],) Prior sleep studies: No Polysomnography/Home Sleep Study results: IMPRESSION: The quality of the study is good. The patient had reduced sleep efficiency due mainly to sleep onset insomnia. The sleep architecture was relatively normal considering the first- night effect. Respiratory monitoring showed no evidence of sleep-disordered breathing (AHI = 0.0) or nocturnal hypoxia (sarah oxygen saturation of 92%). The patient had limited supine sleep of only 23 minutes. Snore was infrequent and light in intensity. There was moderate periodic leg movement of sleep not associated with sleep fragmentation. Cardiac rhythm was normal sinus rhythm without significant arrhythmia. No abnormal behavior (parasomnia) observed during the night. Allergies and Home Medications Home medication list reviewed: Yes (no changes) Allergy and home medication list: Allergies No Known Drug Allergies Allergy (Verified 07/12/19 08:04) Review of Systems Review of systems same as previous: Yes (no changes) Physical Exam Vital signs obtained and entered by: Eleno FALCONMA Blood Pressure: 133/86 (LEFT, RESP 18, PULSE 60,) Heart Rate: 59 O2 Saturation: 98 (PAPER MASK) Height: 5 ft 11.65 in Weight: 193 lb (CLOTHES) Body Mass Index: 26.4 BMI Classification: Overweight Impression and Plan 1. Periodic limb movement, moderate, that did not fragment patients sleep. Periodic limb movement of sleep (PLMS) is characterized by episodes of repetitive limb movements that occur during sleep and usually involve the lower limbs. The etiology is unknown but can be associated with restless leg syndrome (RLS), a low serum ferritin level, neuropathy, spinal cord diseases, kidney disease, rheumatological disorders, narcolepsy, obstructive sleep apnea, and REM sleep behavior disorder. Caffeine can also aggravate PLMS and should be avoided. Sleep hygiene methods can also improve sleep as well as lifestyle changes such as regular exercise. Patient was advised that no treatment is needed at this time. If symptoms increase, then further evaluation is indicated. 2. Light snoring but no significant sleep disordered breathing. Patient advised that often weight loss will reduce snoring as well as apnea risk. An oral appliance can also be used for snoring. This would require a dental consultation. Patient cautioned not to use other online appliances as can cause bite issues. A list of accredited dentists in [facility] and one local dentist who makes oral appliances is available in the office. Patient is advised to check if insurance will cover. An ENT consult can also be helpful to determine if any other treatment is an option. 3. Insomnia, sleep onset. Insomnia is generally caused by an irregular sleep schedule, spending too much time in bed, napping, caffeine, electronics, lack of a relaxing bedtime ritual and clock watching. Other factors can include anxiety/depression, pain, medications, and obstructive sleep apnea. I reviewed regular sleep schedule and he does have the [facility] pamphlets given at his last visit about Understanding Insomnia and How to get Better sleep. He was counseled that he could follow up if he is unable to achieve improvement of his insomnia on his own. He voiced understanding. * Attempt to lose weight * Avoid alcohol consumption near bedtime * The patient is cautioned about driving until sleepiness is completely resolved. * Return as needed for follow up. Counseling Topics: Weight loss health impact Visit Type: In Office Time Spent with Patient (minutes): 13 Provider Statement: I spent 100% of the Face to Face Visit with the patient with greater than 50% spent counseling the patient and coordination of care.
[2021-10-15 14:14] VITALS: BP 133/86
== END 2021-10-15 13:45 | disposition home or self-care (01) ==
LOC: SC 13:44
PROVIDERS: ATTEND Nurse Practitioner Family
DX: G47.61 Periodic limb movement disorder (principal); R06.83 Snoring; G47.09 Other insomnia; E66.3 Overweight; Z68.26 Body mass index [BMI] 26.0-26.9, adult
CPT/HCPCS: 99212

== ENCOUNTER 2022-08-23 10:16 | Outpatient (CLI) | payer MEDICAID | END 2022-08-23 23:59 | disposition left against medical advice (07) | LOC: EMS 10:16 | DX: R07.9 Chest pain, unspecified (principal); F41.9 Anxiety disorder, unspecified; R00.0 Tachycardia, unspecified ==